=== PATIENT | male | born 1960 | race Caucasian/White ===

== ENCOUNTER 2017-08-26 13:01 | Day surgery (SDC) | payer BC ==
[2017-08-26] MEDS ORDERED: MIDAZOLAM HCL 2MG/2ML VIAL IV ONE (13:02)
[2017-08-26] MEDS ORDERED: LIDOCAINE 2% MDV (20MG/ML) 20ML VIAL IV ONE (13:02)
[2017-08-26] MEDS ORDERED: PROPOFOL 10 MG/ML VIAL IV ONE (13:02)
--- NOTE | 2017-08-27 13:10 | Operative Note ---
DATE OF SURGERY: 08/26/2017 Surgeon: Stephen Olvera DO Referring physician: Wally Nicole DO OPERATION: COLONOSCOPY TO THE CECUM WITH ELECTROCAUTERY SNARE POLYPECTOMY. INDICATION: 1. Family history of colon cancer (patient's mother). 2. History of polyps. Intravenous sedation was administered by the Department of Anesthesiology and included Diprivan titrated to effect. PROCEDURE: Following informed consent from this alert individual, including a discussion of the risks and benefits of the procedure and opportunity for the patient to ask questions, the patient was in the left lateral decubitus position. Digital rectal examination was performed. No abnormalities were noted. Following this, the Olympus PCF 180 Video Colonoscope was inserted in the rectum without resistance. The rectal mucosa as visualized had a normal appearance with normal folds and distensibility, unfortunately, there was a fair amount of retained liquid and some semi-solid stool noted. Washing and suctioning was employed vigorously. The colonoscope was advanced up to the level of the cecum, but again the preparation was suboptimal, with retained liquid and semi-solid stool noted through approximately half of the colon. The cecum was finally defined by noting the appendiceal orifice and the ileocecal valve. From the base of the cecum, the colonoscope was then withdrawn. In the ascending colon, there was a sessile 7 mm polyp noted, which was initially removed partially with cold snare polypectomy, and then ultimately removed with snare cautery. Again, there was some retained stool noted in the ascending colon and the left colon, precluding a complete evaluation. Again, washing and suctioning was employed vigorously, and as visualized, no large polyps were seen, however, smaller lesions could have been easily missed due to the retained stool. The colonoscope was ultimately withdrawn back into the rectum, where retroflexion accomplished following air sufflation failed to demonstrate any gross abnormalities. The instrument was straightened and withdrawn. The patient tolerated the procedure well and returned to the recovery area in stable condition. IMPRESSION: 1. A 7 to 8 mm sessile ascending colon polyp removed with snare polypectomy as described above. 2. Poor colon preparation. RECOMMENDATIONS: The patient did take his prep properly, for that reason, I do recommend he have a repeat colonoscopy in 3 to 4 months with a 2 day colon prep and utilizing citrate of magnesium in addition to the routine preparation solution. He agreed to pursue this. Further recommendations will be forthcoming pending that result and results of pathology obtained today. Follow up will also be with Dr. Wally Nicole. As always, thank you for allowing me to participate in the care of your patient. CC: Judit AGUIRRE DO MTDD
== END 2017-08-26 15:35 | disposition home or self-care (01) ==
LOC: HOP 13:01
PROVIDERS: ATTEND Internal Medicine Gastroenterology
DX: Z86.010 Personal history of colon polyps (principal); D12.2 Benign neoplasm of ascending colon; Z80.0 Family history of malignant neoplasm of digestive organs